=== PATIENT | female | born 1980 | race Caucasian/White ===

== ENCOUNTER 2019-01-08 12:17 | Emergency (ER) | payer OTHER ==
[2019-01-08 12:17] VITALS: BMI 27.6
[2019-01-08 13:06] VITALS: BP 134/84; PULSE 65; RESP 18; TEMP 98.2; O2SAT 100
--- NOTE | 2019-01-08 13:48 | ED PDOC ---
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 Patient states she was walking to a supply closet when two heavy rolls of bags fell from the shelf. One struck the right side of her head and the other landed on her right shoulder. She has localized pain to both areas and also reports an associated neck pain described as stiffness. Patient further states headache is right sided and associated with dizziness. She took no medications before coming, no prior head, neck or shoulder injury. Patient is right hand dominant. She denies any fever, chills, visual changes, nausea, vomit, weakness, numbness or loss of sensation. LMP was on 01/03/19. No further medical complaints. PMD: Isamar Sellers Past Medical History Reviewed: Historical Data, Nursing Documentation, Vital Signs Vital Signs: Last Vital Signs Temp 98.2 F 01/08/19 13:03 Pulse 65 01/08/19 13:03 Resp 18 01/08/19 13:03 BP 134/84 01/08/19 13:03 Pulse Ox 100 01/08/19 13:03 - Medical History PMH: No Chronic Diseases - Surgical History Surgical History: No Surg Hx - Family History Family History: States: Unknown Family Hx - Social History Current smoker - smoking cessation education provided: No Alcohol: None Drugs: Denies - Home Medications Home Medications: Ambulatory Orders Medication Instructions Recorded Vitamins8 [Classic 1 tab PO DAILY 03/15/15 ] Famotidine [Pepcid] 20 mg PO DAILY #5 tab 05/12/16 Loratadine [Claritin] 10 mg PO DAILY #7 tab 05/12/16 RX: predniSONE [predniSONE Tab] 20 mg PO DAILY #12 tab 05/12/16 Acetaminophen [Acetaminophen 8 650 mg PO Q8 PRN #21 tablet.er 02/19/19 Hour] RX: Naproxen 500 mg PO BID PRN #20 tab 01/08/19 - Allergies Allergies/Adverse Reactions: Allergies Allergy/AdvReac Type Severity Reaction Status Date / Time No Known Allergies Allergy Verified 01/08/19 13:03 Review of Systems ROS Statement: Except As Marked, All Systems Reviewed And Found Negative Constitutional: Negative for: Fever, Chills Eyes: Negative for: Vision Change Gastrointestinal: Negative for: Nausea, Vomiting Musculoskeletal: Positive for: Neck Pain, Shoulder Pain (right) Neurological: Positive for: Headache (right sided), Dizziness. Negative for: Weakness, Numbness, Other (sensation loss) Physical Exam - Reviewed Nursing Documentation Reviewed: Yes Vital Signs Reviewed: Yes - Physical Exam Comments: GENERAL APPEARANCE: Patient is awake, alert, oriented x 3, in no acute distress. SKIN: Warm, dry; (-) cyanosis. HEAD: (+) right parietal and temporal scalp tenderness, with no palpable bony defect or hematoma. EYES: (-) conjunctival injection NECK: Supple, FROM (+) right paracervical tenderness, (-) midline cervical tenderness, (-) lymphadenopathy. CHEST AND RESPIRATORY: (-) chest wall tenderness. Lungs: (-) rales, (-) rhonchi, (-) wheezes; breath sounds equal bilaterally. Respirations even and nonlabored. HEART AND CARDIOVASCULAR: (-) irregularity ABDOMEN AND GI: Soft; (-) tenderness. BACK: (-) midline tenderness. EXTREMITIES: Right shoulder; (-) AC joint deformity, (+) diffuse tenderness to right shoulder and right trapezius but remainder of upper extremity nonteder, (+) Decreased ROM on right shoulder secondary to pain mostly on extension and abduction, distal pulses 2+. (-) effusion or crepitus, (-) erythema, (-) skin b reak(-) edema, (-) ecchymosis. NEURO AND PSYCH: GCS=15. Mental status as above. Has full memory of episode; anesthesiology resident: Intact, Pupils equal & reactive. EOMI and painless (-) facial asymmetry. Tongue and uvula midline. Strength 5/5 in all extremities. No gross sensory deficits. Gait: steady. Speech: clear. Cerebellar tests normal. - Laboratory Results Urine POC: Negative - ECG O2 Sat by Pulse Oximetry: 100 (RA) Pulse Ox Interpretation: Normal Medical Decision Making Medical Decision Making: Time: 13:10 Initial Impression: close head injury, acute shoulder pain and acute neck pain Initial Plan: --Head w/o contrast [CT] --Tylenol 325mg tab 650 mg PO --Shoulder Right [RAD] --Reevaluation Head CT FINDINGS: HEMORRHAGE: No acute parenchymal, subarachnoid or extra-axial hemorrhage. BRAIN: No mass effect or edema. No atrophy or chronic microvascular ischemic changes. Note made of a small approximately 3.6 mm rounded hyperdense focus in the anterior suprasellar region which may represent volume averaging of the subjacent anterior clinoid however possibility of a small suprasellar lesion cannot be excluded. Follow-up MRI/MRA of the brain may be prudent to exclude incidental small suprasellar lesion or possibly a small aneurysm. VENTRICLES: No obstructive hydrocephalus. CALVARIUM: No acute calvarial fracture seen. PARANASAL SINUSES: Unremarkable as visualized. No significant inflammatory changes. MASTOID AIR CELLS: Unremarkable as visualized. No inflammatory changes. OTHER FINDINGS: None. IMPRESSION: No acute intracranial hemorrhage. Note made of a small approximately 3.6 mm rounded hyperdense focus in the anterior suprasellar region which may represent volume averaging of the subjacent anterior clinoid however possibility of a small suprasellar lesion cannot be excluded. Follow-up MRI/MRA of the brain may be prudent to exclude incidental small suprasellar lesion or possibly a small aneurysm. Shoulder X-Ray FINDINGS: BONES: No evidence of acute displaced fracture nor dislocation. The osseous structures appear intact. JOINTS: Normal. Glenohumeral and acromioclavicular joints preserved. No osteoarthritis. SOFT TISSUES: Normal. OTHER FINDINGS: None. IMPRESSION: No evidence of acute displaced fracture nor dislocation. 1435 On re-evaluation, patient reports improvement of symptoms. On exam, patient remains AAOx3, in no acute distress. Lungs clear to auscultation, cardiac RRR, repeat neuro exam shows no focal findings. Vitals stable. Lab/Diagnostic results d/w the patient in great detail with demonstrated understanding. Repeat imaging of head/outpatient follow up with PMD stressed to patient. Patient provided with a copy of CT scan report for follow up. Diagnosis of closed head injury, acute neck and shoulder pain d/w the patient. Based on history, exam and diagnostic results, plan will be for outpatient follow up with PMD/ortho. Patient instructed to follow-up with pmd / referral provided / the clinic in 1- 2 days without fail. Advised to take medication as prescribed. Return to the emergency room at any time for any new or worsening symptoms. Patient states she fully agrees with and understands discharge instructions. States that she agrees with the plan and disposition. Verbalized and repeated discharge instructions and plan. I have given the patient opportunity to ask any additional questions. ----- Scribe Attestation: Documented by Toro Rosario, acting as a scribe for Jessi Lares PA-C. Provider Scribe Attestation: All medical record entries made by the Scribe were at my direction and personal ly dictated by me. I have reviewed the chart and agree that the record accurately reflects my personal performance of the history, physical exam, medical decision making, and the department course for this patient. I have also personally directed, reviewed, and agree with the discharge instructions and disposition. Disposition - Clinical Impression Clinical Impression: Acute neck pain, Closed head injury, Acute shoulder pain, Contusion - Patient ED Disposition Is Patient to be Admitted: No Counseled Patient/Family Regarding: Studies Performed, Diagnosis, Need For Followup, Rx Given - Disposition Referrals: Isamar Sellers MD [Staff Provider] - Henri Forman III, MD [Staff Provider] - Disposition: Routine/Home Disposition Time: 14:35 Condition: STABLE Additional Instructions: FOLLOW UP WITH PMD SOON POSSIBLE FOR REPEAT IMAGING. The emergency medical care you received today was directed at your acute symptoms. If you were prescribed any medication, please fill it and take as directed. It may take several days for your symptoms to resolve. Return to the Emergency Department if your symptoms worsen, do not improve, or if you have any other problems. Please contact your doctor in 2 days for re-evaluation and follow up / or call one of the physicians/clinics you have been referred to that are listed on the Patient Visit Information form that is included in your discharge packet. Bring any paperwork you were given at discharge with you along with any medications you are taking to your follow up visit. Our treatment cannot replace ongoing medical care by a primary care provider (PCP) outside of the emergency department. Prescriptions: Acetaminophen [Acetaminophen 8 Hour] 650 mg PO Q8 PRN #21 tablet.er PRN Reason: Pain, Moderate (4-7) RX: Naproxen 500 mg PO BID PRN #20 tab PRN Reason: Pain, Moderate (4-7) Instructions: Concussion in Adults, Neck Pain, Closed Head Injury, Contusion (DC), Shoulder Pain (DC) Forms: [facility] (Czech), [facility] ED School/Work Excuse Print Language: FRENCH - POA Present On Arrival: Falls Or Trauma
--- NOTE | 2019-01-08 14:14 | CT ---
Date of service: 01/08/2019 PROCEDURE: CT HEAD WITHOUT CONTRAST. HISTORY: Status post object falling on right side head COMPARISON: None available. TECHNIQUE: Axial computed tomography images were obtained through the head/brain without intravenous contrast. Radiation dose: Total exam DLP = 832.71 mGy-cm. This CT exam was performed using one or more of the following dose reduction techniques: Automated exposure control, adjustment of the mA and/or kV according to patient size, and/or use of iterative reconstruction technique. FINDINGS: HEMORRHAGE: No acute parenchymal, subarachnoid or extra-axial hemorrhage. BRAIN: No mass effect or edema. No atrophy or chronic microvascular ischemic changes. Note made of a small approximately 3.6 mm rounded hyperdense focus in the anterior suprasellar region which may represent volume averaging of the subjacent anterior clinoid however possibility of a small suprasellar lesion cannot be excluded. Follow-up MRI/MRA of the brain may be prudent to exclude incidental small suprasellar lesion or possibly a small aneurysm. VENTRICLES: No obstructive hydrocephalus. CALVARIUM: No acute calvarial fracture seen. PARANASAL SINUSES: Unremarkable as visualized. No significant inflammatory changes. MASTOID AIR CELLS: Unremarkable as visualized. No inflammatory changes. OTHER FINDINGS: None. IMPRESSION: No acute intracranial hemorrhage. Note made of a small approximately 3.6 mm rounded hyperdense focus in the anterior suprasellar region which may represent volume averaging of the subjacent anterior clinoid however possibility of a small suprasellar lesion cannot be excluded. Follow-up MRI/MRA of the brain may be prudent to exclude incidental small suprasellar lesion or possibly a small aneurysm.
--- NOTE | 2019-01-08 14:51 | RAD ---
Date of service: 01/08/2019 PROCEDURE: Radiographs of the Right Shoulder HISTORY: Status post object striking shoulder COMPARISON: No prior. FINDINGS: BONES: No evidence of acute displaced fracture nor dislocation. The osseous structures appear intact. JOINTS: Normal. Glenohumeral and acromioclavicular joints preserved. No osteoarthritis. SOFT TISSUES: Normal. OTHER FINDINGS: None. IMPRESSION: No evidence of acute displaced fracture nor dislocation.
== END 2019-01-08 15:44 | disposition home or self-care (01) ==
LOC: H.ER 12:17
DX: S09.90XA Unspecified injury of head, initial encounter (principal); M25.511 Pain in right shoulder; M54.2 Cervicalgia; W22.8XXA Striking against or struck by other objects, initial encounter; Y99.0 Civilian activity done for income or pay